=== PATIENT | male | born 1980 | race African-American/Black ===

== ENCOUNTER 2019-04-15 23:32 | Emergency (ER) | payer OTHER, SELFPAY ==
[2019-04-15 23:50] VITALS: BP 155/78; PULSE 75; RESP 18; TEMP 37.2; O2SAT 98
--- NOTE | 2019-04-16 02:12 | ED.DENTAL ---
HPI - Dental/Oral General Chief complaint: Dental/Oral Stated complaint: dental pain Time Seen by Provider: 04/16/19 01:48 Source: patient and RN notes reviewed Mode of arrival: ambulatory Limitations: no limitations History of Present Illness HPI Narrative: A 39 y/o male presents to the ED with constant, severe, lower rt jaw/tooth pain beginning tonight. He states that he knows that he has a cavity and that he needs to see a dentist to have it removed. He denies any fevers, chills, sweats, swelling, N/V/D, or ABD pain. MD Complaint: tooth pain (lower rt) Onset (ago): hour(s) Duration: constant Severity: severe Context: history of dental caries Related Data Allergies Allergy/AdvReac Type Severity Reaction Status Date / Time No Known Allergies Allergy Verified 04/16/19 02:17 Review of Systems Review of Systems: Narrative: CONSTITUTIONAL: Denies fever, chills, or sweats. ENT: Reports rt lower jaw/tooth pain. Denies any facial swelling. GASTROINTESTINAL: Denies abdominal pain, nausea, vomiting, or diarrhea. All systems reviewed & are unremarkable except as noted in HPI and below PMFSH Surgical History Surgical History (Updated 04/16/19 @ 03:24 by Kaiser Mckoy) History of appendectomy No history of previous surgery Social History Social History (Updated 04/16/19 @ 03:25 by Kaiser Mckoy) Smoking status: Never smoker Exam Narrative: Exam Narrative: GENERAL: Well-appearing, well-nourished, and in no acute distress. HEAD: Normocephalic, atraumatic. EYES: PERRLA and EOMI. ENT: Nares clear, no rhinorrhea or epistaxis. Mucous membranes moist. Uvula is midline. Dental caries about molar 30. No purulent drainage, no evidence of abscess. No trismus. NECK: Supple. No cervical or submandibular lymphadenopathy. CHEST: Clear to auscultation. No respiratory distress. HEART: Regular rate and rhythm. No murmur heard. Normal peripheral pulses. ABDOMEN: Soft, nontender, nondistended, normal active bowel sounds. EXTREMITIES: Normal range of motion. No edema. SKIN: Warm, dry, no rash. NEURO: No focal deficits. Alert and oriented x3 Course Vital Signs Vital signs: Vital Signs Temperature 37.2 C 04/15/19 23:50 Pulse Rate 75 04/15/19 23:50 Respiratory Rate 18 04/15/19 23:50 Blood Pressure 155/78 H 04/15/19 23:50 Pulse Oximetry 98 04/15/19 23:50 Temperature 37.2 C 04/15/19 23:50 Pulse Rate 75 04/16/19 02:13 Respiratory Rate 20 04/16/19 02:13 Blood Pressure 138/87 04/16/19 02:13 Pulse Oximetry 97 04/16/19 02:13 MDM - Dental/Oral MDM Narrative Medical decision making narrative: Patient's pain is consistent with dental caries. At the time of assessment there are no signs of systemic illness, no focal signs of space-occupying abscess or lesions, no signs of Willie angina or other concerning retropharyngeal infection. The patient is controlling her secretions well without signs of airway compromise. Patient is thought reasonable for outpatient follow-up with dental evaluation. Patient given oral antibiotics and medication for analgesia. Differential Diagnosis Differential diagnosis: Likely dental caries, toothache, dental abscess and fracture of tooth Discharge Plan Discharge Clinical Impression: Toothache, Dental caries Patient Disposition: Home, Self-Care Condition: Stable Instructions: Antibiotic Form, Toothache (ED) Additional Instructions: It is very important you call dentist for close follow-up. Please take all of your antibiotic as prescribed. You may also take your pain medication as needed when Tylenol and ibuprofen is not working for your pain. Please return to the ER for worsening pain, nausea/vomiting, fever/chills, worsening bleeding, chest pain, shortness of breath, blood in stools or urine, etc. or any other concerns. Take any prescribed medications as directed. Stay well-hydrated If you do not have a drug allergy to tylenol or motrin and can tolerate it then take tyl
[2019-04-16 02:13] VITALS: BP 138/87; PULSE 75; RESP 20; O2SAT 97
== END 2019-04-16 02:50 | disposition home or self-care (01) ==
PROVIDERS: Emergency Provider Emergency Medicine
DX: K02.9 Dental caries, unspecified (principal)
CPT/HCPCS: 99283

== ENCOUNTER 2019-06-12 09:30 | Emergency (ER) | payer OTHER, MEDICAID, SELFPAY ==
--- NOTE | 2019-06-12 09:38 | ED.DENTAL ---
HPI - Dental/Oral General Chief complaint: Dental/Oral Stated complaint: Tooth pain Time Seen by Provider: 06/12/19 09:40 Source: patient and RN notes reviewed Mode of arrival: ambulatory Limitations: no limitations History of Present Illness HPI Narrative: 39-year-old male presents with concern for tooth pain. He reports he has a MD Complaint: tooth pain Location: Tooth # (30) Related Data Home Medications Medication Instructions Recorded Confirmed No Home Medications 06/12/19 06/12/19 Allergies Allergy/AdvReac Type Severity Reaction Status Date / Time No Known Allergies Allergy Verified 06/12/19 09:38 Review of Systems Review of Systems: Narrative: CONSTITUTIONAL: Denies malaise, chills, sweats, or fever. EYES: Denies visual changes, redness, or discharge. ENT: Denies rhinorrhea, congestion, sinus pain, otalgia or sore throat. Reports right lower dental pain CARDIOVASCULAR: Denies chest pain, palpitations RESPIRATORY: Denies dyspnea. GASTROINTESTINAL: Denies abdominal pain, nausea, vomiting SKIN: Denies facial swelling MUSCULOSKELETAL: Denies myalgia. NEUROLOGIC: Denies headache. All systems reviewed & are unremarkable except as noted in HPI and below PMFSH Surgical History Surgical History (Updated 04/16/19 @ 03:24 by Kaiser Mckoy) History of appendectomy No history of previous surgery Social History Social History (Updated 04/16/19 @ 03:25 by Kaiser Mckoy) Smoking status: Never smoker Gender identity (if verbalized by the patient): Male Comments At time of signature, agree with nursing past medical, surgical, social and family history. There is no relevant family history pertinent to the presenting complaint Exam Narrative: Exam Narrative: GENERAL: Well-appearing, well-nourished, and in no acute distress. HEAD: Normocephalic, atraumatic. EYES: PERRLA, conjunctivae clear ENT: Nares clear. Mucous membranes moist. Oropharynx without edema, erythema or lesions. Tooth #30 broken with caries, no periapical abscess noted, no facial swelling noted NECK: Supple. No lymphadenopathy. CHEST: No respiratory distress. Clear to auscultation. No bony deformities, no asymmetry. Speaks in full sentences. HEART: Regular rate and rhythm. No murmur heard. SKIN: Warm, dry, no rash. NEURO: Alert and oriented x3. PSYCH: Normal mood and affect Course Course Emergency Course: Patient is aware of diagnosis, understands and agrees to treatment plan. Anticipatory guidance given. Patient agrees to follow-up as directed and is aware of reasons to seek care at the emergency department. Portions of this record may have been created with voice recognition software Vital Signs Vital signs: Vital Signs Temperature 97.1 F L 06/12/19 09:41 Pulse Rate 65 06/12/19 09:41 Respiratory Rate 16 06/12/19 09:41 Blood Pressure 121/55 L 06/12/19 09:41 Pulse Oximetry 98 06/12/19 09:41 Temperature 97.1 F L 06/12/19 09:41 Pulse Rate 65 06/12/19 09:41 Respiratory Rate 16 06/12/19 09:41 Blood Pressure 121/55 L 06/12/19 09:41 Pulse Oximetry 98 06/12/19 09:41 Reviewed. MDM - Dental/Oral MDM Narrative Medical decision making narrative: Patients pain and complaint coupled with physical findings are consistant with dentalgia. There are no focal signs of space occupying lesions that are compromising to the airway; no dysphagia, odynophagia, dysphonia, or dyspnea. No uvular deviation or soft palate edema. Patient is non-toxic appearing. The floor of the mouth is soft with no signs of Willie's Angina; no induration below mandible, no neck pain. Patient is without trismus or drooling and able to swallow secretions. Patient is felt appropriate for discharge home with dental follow up. Critical Care Time Critical Care Time Critical Care Time: No Discharge Plan Discharge Clinical Impression: Toothache Patient Disposition: Home, Self-Care Condition: Stable Instructions: Antibiotic Form, Too
[2019-06-12 09:41] VITALS: BP 121/55; PULSE 65; RESP 16; TEMP 36.2; O2SAT 98
== END 2019-06-12 10:02 | disposition home or self-care (01) ==
PROVIDERS: Emergency Provider Nurse Practitioner
DX: K08.89 Other specified disorders of teeth and supporting structures (principal)
CPT/HCPCS: 99213; G0463

== ENCOUNTER 2020-01-16 08:05 | Emergency (ER) | payer OTHER, MEDICAID, SELFPAY ==
[2020-01-16 08:20] VITALS: BP 149/63; PULSE 102; RESP 18; TEMP 38.7; O2SAT 95
--- NOTE | 2020-01-16 08:21 | ED.GENADULT ---
HPI - General Adult General Chief complaint: Upper Respiratory Infection Stated complaint: Cough Time Seen by Provider: 01/16/20 08:23 Source: patient and RN notes reviewed Mode of arrival: ambulatory Limitations: no limitations History of Present Illness HPI narrative: 39-year-old -[place] male presents with complaints of upper respiratory infection symptoms and cough for the past 3-4 days. Israel says he here due to increase in coughing episodes over the past 24 hours with yellow productive sputum. Theraflu, NyQuil, and cough drops with some relief. No chest congestion. No rhinorrhea and nasal congestion. No exacerbating factors. No nausea, vomiting, and abdominal pain. Tolerating po intake well. Denies chest pain, dyspnea, coughing up blood, difficulty swallowing, jaw pain, dental pain, facial pain, foreign body sensation, and rash. Remains active. The patient reports he have not been diagnosed with COVID-19. The patient reports he is not waiting for the results of a COVID-19 lab test. The patient reports he do not have chills, weakness, or fatigue. The patient reports he does have shortness of breath. The patient reports he do not have any loss of taste, sore throat, and diarrhea. Denies recent traveling. 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 At this time, patient is not suspected of having COVID-19. Some parts of this dictation were generated by voice recognition software and may contain typographical and/or grammatical inaccuracies. Related Data Allergies Allergy/AdvReac Type Severity Reaction Status Date / Time No Known Allergies Allergy Verified 01/16/20 08:34 Review of Systems Review of Systems: Narrative: CONSTITUTIONAL: Denies fever, chills, sweats. EYES: Denies visual changes, redness, discharge. ENT: Denies rhinorrhea, congestion, sore throat. otalgia. CARDIOVASCULAR: Denies chest pain, palpitations, edema. RESPIRATORY: Denies dyspnea, wheezing. Complains of dry cough with intermittent productive. GASTROINTESTINAL: Denies abdominal pain, nausea, vomiting, diarrhea. SKIN: Denies rash or itching. MUSCULOSKELETAL: Denies acute back pain, joint pain, or myalgia. NEUROLOGIC: Denies numbness or focal weakness. PSYCHIATRIC: Denies anxiety or depression. All systems reviewed & are unremarkable except as noted in HPI and below. [facility] Past Medical History Medical History (Updated 01/16/20 @ 08:59 by BRAYDON Chowdary) Acute upper respiratory infection No significant past medical history Surgical History Surgical History (Updated 01/16/20 @ 08:49 by BRAYDON Chowdary) History of appendectomy Social History Social History Smoking status: Never smoker Gender identity (if verbalized by the patient): Male Comments At time of signature, agree with nurse past medical, surgical, social, and family history. There is no relevant family history pertinent to the presenting complaint. Exam Narrative: Exam Narrative: GENERAL: This is a well-nourished, well-developed patient, in no apparent distress. Speaks in full sentences and ambulates with steady gait without dyspnea. HEAD: normocephalic, atraumatic. EYES: PERRL. Sclera clear/white. Vision is grossly intact. EARS: External ears normal, auditory canals clear and without drainage, TMs normal without perforation. Hearing grossly intact. NOSE: External nose normal with no obvious nasal discharge, nares with moderate redness and enlarged turbinates, right worse, no rhinorrhea. THROAT: Mucous membranes moist, posterior pharynx with PND, mild erythema, no exudate, and normal tonsils. No drainage, no concern for Peritonsillar abscess. No drooling, trismus, or neck swelling. NECK: Neck supple, non-tender without lymphadenopathy, mass
[2020-01-16 08:45] VITALS: TEMP 38.3
[2020-01-16] MEDS: IBUPROFEN 400 MG TABLET 800 MG PO (08:45)
[2020-01-16 08:46] VITALS: TEMP 38.3
[2020-01-16] MEDS: ACETAMINOPHEN 325 MG TABLET 1000 MG PO (08:46)
[2020-01-16 09:16] VITALS: TEMP 37.4
== END 2020-01-16 09:16 | disposition home or self-care (01) ==
PROVIDERS: Emergency Provider Nurse Practitioner Family
DX: J06.9 Acute upper respiratory infection, unspecified (principal); Z20.828 Contact with and (suspected) exposure to other viral communicable diseases
CPT/HCPCS: 87081; 87804; 87880; 99213; A9270; G0463

== ENCOUNTER 2020-10-15 00:23 | Emergency (ER) | payer OTHER, MEDICAID, SELFPAY ==
[2020-10-15 00:27] VITALS: BP 160/83; PULSE 67; RESP 16; TEMP 36.3; O2SAT 97
--- NOTE | 2020-10-15 03:09 | ED.DENTAL ---
HPI - Dental/Oral General Chief complaint: Dental/Oral Stated complaint: facial swelling following dental extraction Time Seen by Provider: 10/15/20 02:18 Source: patient and RN notes reviewed Mode of arrival: ambulatory Limitations: no limitations History of Present Illness HPI Narrative: This is a 40 year old male who presents for evaluation of left cheek pain and swelling. He states he had 3 teeth pulled last week. He also reports there was an incision made to left upper gum last week. He was discharged home on ibuprofen and pain medication but he denies taking antibiotics. He came to ER today because he developed left upper gum, facial throbbing pain. He states it feels swollen. He took ibuprofen earlier for his pain and he had improvement. He denies nausea, vomiting, fever, difficulty breathing. He also denies drainage from his gum or teeth. Related Data Allergies Allergy/AdvReac Type Severity Reaction Status Date / Time No Known Allergies Allergy Verified 10/15/20 02:59 Review of Systems Review of Systems: All systems reviewed & are unremarkable except as noted in HPI and below PMFSH Past Medical History Medical History Acute upper respiratory infection No significant past medical history Surgical History Surgical History (Updated 01/16/20 @ 08:49 by BRAYDON Chowdary) History of appendectomy Social History Social History Smoking status: Never smoker Gender identity (if verbalized by the patient): Male Exam Const: General: no acute distress and alert Nutritional Appearance: obese Orientation/consciousness: patient oriented x3 HENMT: Head: normocephalic and atraumatic Face and sinus: face symmetric Mouth: Yes other (left cheek tenderness, no swelling) Teeth and gingiva: other (socket at 13 brown but no drainage, no gum swelling, ) Throat: posterior oropharynx normal, tonsils normal and uvula midline Eyes: EOM: EOMs intact bilaterally Resp: Effort & Inspection: normal respiratory effort Skin: General skin exam: normal color Rashes: no rashes Neuro: General: patient oriented x3, moves all extremities and CN's II-XI intact bilaterally Course Reevaluation(s) Reevaluation #1: I have discussed with patient plan to discharge with antibiotics. HE will follow up with his dentist. Date: 10/15/20 Time: 03:13 Vital Signs Vital signs: Vital Signs Temperature 97.3 F L 10/15/20 00:27 Pulse Rate 67 10/15/20 00:27 Respiratory Rate 16 10/15/20 00:27 Blood Pressure 160/83 H 10/15/20 00:27 Pulse Oximetry 97 10/15/20 00:27 Temperature 97.3 F L 10/15/20 00:27 Pulse Rate 67 10/15/20 00:27 Respiratory Rate 16 10/15/20 00:27 Blood Pressure 160/83 H 10/15/20 00:27 Pulse Oximetry 97 10/15/20 00:27 Discharge Plan Discharge Clinical Impression: Dental abscess Patient Disposition: Home, Self-Care Condition: Stable Instructions: Antibiotic Form, Dental Abscess (ED), Toothache (ED) Additional Instructions: Please call your dentist tomorrow to discuss your issue to see if they would to see you again. Take antibiotics as prescribed. Prescriptions: New amoxicillin-pot clavulanate [Augmentin] 875-125 mg tablet 1 tablet PO Q12H Qty: 20 RF: 0 ibuprofen 600 mg tablet 600 mg PO Q6H PRN (Reason: pain) Qty: 14 RF: 0 No Action benzonatate 100 mg capsule 100 mg PO TID Qty: 60 RF: 0 fluticasone propionate [Allergy Relief (fluticasone)] 50 mcg/actuation spray,suspension 1 spray NASAL BID Qty: 16 RF: 0 cetirizine [Zyrtec] 10 mg tablet 10 mg PO DAILY 60 Days Qty: 60 RF: 0 Follow-up/Referrals: PHYSIC[facility] [Primary Care Provider] - Colin Aguirre MD [Physician] - Stand Alone Forms: Work/School Release IP
[2020-10-15] MEDS: IBUPROFEN 600 MG TABLET PO (03:35)
[2020-10-15] MEDS: AMOXICILLIN/CLAVULANATE K 875-125 MG TAB 1 TABLET PO (03:35)
== END 2020-10-15 03:33 | disposition home or self-care (01) ==
PROVIDERS: Emergency Provider General Practice
DX: K04.7 Periapical abscess without sinus (principal)
CPT/HCPCS: 99283; A9270

== ENCOUNTER 2022-08-19 23:39 | Emergency (ER) | payer OTHER, MEDICAID, SELFPAY ==
[2022-08-19 23:47] VITALS: BP 146/75; PULSE 88; RESP 16; TEMP 36.4; O2SAT 97
[2022-08-20 00:28] LABS: Appearance Urine Clear (Clear); Bacteria Urine None Seen /hpf; Bilirubin Urine Negative (Negative); Blood Urine Negative (Negative); Color Urine Yellow (Yellow); Glucose Urine UA 2+ mg/dL (Negative); Ketones Urine Trace mg/dL (Negative); Leukocyte Esterase Ur Negative LEU/UL (Negative); Need Manual Microscopic Reviewed; Nitrate Urine Negative (Negative); Non Pathogenic Casts 0-2; Protein Urine 2+ mg/dL (Negative); RBC Urine 0-2 /hpf (0-2); Specific Grav Ur 1.031 (1.001-1.035); Squamous Epithelial Cell Urine None seen /hpf (Few)
[2022-08-20 00:31] LABS: Add Urine Microscopic? YES
[2022-08-20 01:54] VITALS: PULSE 69; RESP 15; TEMP 36.6; O2SAT 98
--- NOTE | 2022-08-20 02:01 | ED.GENADULT ---
HPI - General Adult General Chief complaint: Urogenital-Male Stated complaint: cut on his penis Time Seen by Provider: 08/20/22 01:55 History of Present Illness HPI narrative: Patient 42-year-old gentleman who presents the emergency department with chief complaint of irritation on his penis. The patient reports that on the base of his glans he has noticed there is some erythema and tenderness patient states that he does sweat a lot both at work and in physical activity. The patient reports no trauma reports no new sexual partners reports that it has been sometime since he had intercourse. The patient reports no trauma Related Data Allergies Allergy/AdvReac Type Severity Reaction Status Date / Time No Known Allergies Allergy Verified 10/15/20 02:59 Review of Systems Review of Systems: A 10 system review of systems was completed on the patient and is negative except for what is stated in the HPI. Nursing and ancillary documentation was reviewed. [facility] Past Medical History Medical History Acute upper respiratory infection No significant past medical history Surgical History Surgical History History of appendectomy Social History Social History Smoking status: Never smoker Gender identity (if verbalized by the patient): Male Exam Narrative: GENERAL: Well-appearing, well-nourished, and in no acute distress. HEAD: Normocephalic, atraumatic. EYES: PERRLA and EOMI. ENT: Nares clear, no rhinorrhea or epistaxis. Mucous membranes moist. NECK: Supple. CHEST: Clear to auscultation. No respiratory distress. HEART: Regular rate and rhythm. No murmur heard. Normal peripheral pulses. ABDOMEN: Soft, nontender, nondistended, normal active bowel sounds. : Penis is atraumatic, there is a small ulceration present at the base of the glans there is no vesicular lesions there is no purulent drainage EXTREMITIES: Normal range of motion. No edema. SKIN: Warm, dry, no rash. NEURO: No focal deficits. Alert and oriented x3. PSYCH: Normal mood and affect. Course Vital Signs Vital signs: Vital Signs Temperature 36.4 C L 08/19/22 23:47 Pulse Rate 88 08/19/22 23:47 Respiratory Rate 16 08/19/22 23:47 Blood Pressure 146/75 H 08/19/22 23:47 Pulse Oximetry 97 08/19/22 23:47 Oxygen Delivery Room Air 08/19/22 23:47 Temperature 36.6 C 08/20/22 01:54 Pulse Rate 69 08/20/22 01:54 Respiratory Rate 15 08/20/22 01:54 Blood Pressure 146/75 H 08/19/22 23:47 Pulse Oximetry 98 08/20/22 01:54 Oxygen Delivery Room Air 08/19/22 23:47 Medical Decision Making MDM Narrative Medical decision making narrative: Differential diagnosis includes bowel otitis, UTI, STI, Urinalysis showed 11-20 white blood cells in the urine Patient's fingerstick blood sugar was 220 The patient will be started on a topical antifungal cream and will also be started on an antibiotic for the urinary tract infection Vital Signs Vital Signs: Vital Signs Temperature 36.4 C L 08/19/22 23:47 Pulse Rate 88 08/19/22 23:47 Respiratory Rate 16 08/19/22 23:47 Blood Pressure 146/75 H 08/19/22 23:47 Pulse Oximetry 97 08/19/22 23:47 Oxygen Delivery Room Air 08/19/22 23:47 Temperature 36.6 C 08/20/22 01:54 Pulse Rate 69 08/20/22 01:54 Respiratory Rate 15 08/20/22 01:54 Blood Pressure 146/75 H 08/19/22 23:47 Pulse Oximetry 98 08/20/22 01:54 Oxygen Delivery Room Air 08/19/22 23:47 Lab Data Labs: Lab Results 08/19/22 08/20/22 Range/Units 23:52 02:02 POC Capillary Glucose 220 H (65-105) mg/dl Urine Color Yellow (Yellow) Urine Appearance Clear (Clear) Urine pH 6.0 (5.0-9.0) Ur Specific [place] 1.031 (1.001-1.035) Urine Protein 2+ H (Negative) mg/dL Uri
[2022-08-20 02:05] LABS: Glucose Point of Care 220 mg/dl (65-105)
[2022-08-20 02:47] VITALS: BP 140/77; PULSE 72; RESP 15; TEMP 36.6; O2SAT 99
== END 2022-08-20 02:48 | disposition home or self-care (01) ==
LOC: ANHED 08-20 02:38
PROVIDERS: Emergency Provider Emergency Medicine
DX: N48.1 Balanitis (principal); N39.0 Urinary tract infection, site not specified; R73.09 Other abnormal glucose
CPT/HCPCS: 81001; 82948; 87086; 99283

== ENCOUNTER 2023-04-23 10:39 | Emergency (ER) | payer BC, OTHER, MEDICAID, SELFPAY ==
--- NOTE | 2023-04-23 10:46 | ED.MALEGU ---
HPI - Male Genitourinary General Chief complaint: Urogenital-Male Stated complaint: Male Problems Time Seen by Provider: 04/23/23 10:55 Source: patient Mode of arrival: ambulatory Limitations: no limitations History of Present Illness HPI Narrative: Israel is a 43-year-old female patient presenting to the clinic today with complaints of a sore to the penis. He reports he 1st noticed this this morning. Denies any concern for any sexually transmitted infections. Denies any urinary symptoms. States that he was cleaning himself this morning and noticed a open tender area to the bottom base of his vas deferens. Related Data Allergies Allergy/AdvReac Type Severity Reaction Status Date / Time No Known Allergies Allergy Verified 04/23/23 10:54 Review of Systems Review of Systems: Pertinent positives per HPI. Patient denies any fever, chills, rash, headache, visual changes, dizziness, cough, shortness of breath, chest pain, palpitations, nausea, vomiting, diarrhea, constipation, abdominal pain, or any urinary issues. PMFSH Past Medical History Medical History Acute upper respiratory infection No significant past medical history Surgical History Surgical History History of appendectomy Social History Social History Smoking status: Never smoker Gender identity (if verbalized by the patient): Male Comments At the time of my signature, I reviewed and agree with the nursing past medical, surgical, social, and family history. There is no relevant family history pertinent to the patient complaint. Exam Narrative: General: Well-developed, well nourished, in no apparent distress Head: Normocephalic, atraumatic. Cardio: Regular rate and rhythm, s1 and s2 normal, no murmur appreciated. Resp: Clear to auscultation bilaterally, no rhonchi, rales, wheezing or rubs. Integumentary: [place], warm, and dry, small open tender not indurated wound to the bottom base of the vas deferens, no drainage noted Course Course Emergency Course: Portions of this record may have been created with voice recognition software. Level of Care: Express Care Visit Vital Signs Vital signs: Vital signs reviewed [facility] - Male Genitourinary MDM Narrative Medical decision making narrative: At the time of visit patient is resting comfortably on the exam table. Patient appears to be nontoxic. Plan: I suspect patient has an open sore to the base of the vas deferens. No obvious sign of herpetic lesions. He denies any known injury. I will send in prescription for mupirocin cream. Supportive measures were discussed with the patient and they voiced understanding discharge instructions and agrees to treatment plan. Return precautions reviewed Differential Diagnosis Differential diagnosis: Likely urinary tract infection, urethritis, epididymitis, prostatitis and other (Sore to the penis) Discharge Plan Discharge Clinical Impression: Open wound of penis without complication Qualifiers: Encounter type: initial encounter Qualified Code(s): S31.20XA - Unspecified open wound of penis, initial encounter Patient Disposition: Home, Self-Care Condition: Stable Instructions: Antibiotic Form, Acute Wounds (ED) Additional Instructions: Keep wound clean and dry Apply mupirocin cream to the affected area twice daily x7 days Watch for signs and symptoms of infection- redness, streaking, swelling, purulent discharge, or increase in pain. Follow up with your PCP in 1 week if symptoms persist or sooner if they worsen Prescriptions: New mupirocin 2 % ointment 1 applic topical BID 7 Days Qty: 22 0RF Follow-up/Referrals: Paige,Michael Lewis MD [Primary Care Provider] - Time of Disposition: 10:53 Quality [facility] Nursing Documentation ED [facility] nursing d
[2023-04-23 10:48] VITALS: BP 153/77; PULSE 64; RESP 18; TEMP 36.8; O2SAT 97
== END 2023-04-23 11:02 | disposition home or self-care (01) ==
PROVIDERS: Emergency Provider Nurse Practitioner Family; PCP Internal Medicine
DX: S31.20XA Unspecified open wound of penis, initial encounter (principal); X58.XXXA Exposure to other specified factors, initial encounter
CPT/HCPCS: 99213; G0463

== ENCOUNTER 2024-10-18 10:22 | Emergency (ER) | payer BC, OTHER, MEDICAID, SELFPAY ==
[2024-10-18 10:29] VITALS: BP 144/76; PULSE 84; RESP 16; TEMP 36; O2SAT 98
--- NOTE | 2024-10-18 10:50 | ED.MALEGU ---
HPI - Male Genitourinary General Chief complaint: Urogenital-Male Stated complaint: private area irritation Time Seen by Provider: 10/18/24 10:49 Source: patient and RN notes reviewed Mode of arrival: ambulatory Limitations: no limitations History of Present Illness HPI Narrative: 44-year-old male presents with concern for irritation below the head of his penis. He reports he noticed it yesterday. He denies any irritation, pain, itchiness. He denies any new personal care products. Denies any concern for STD. Reports he is very active and gets sweaty. MD Complaint: other (irritation) Related Data Allergies Allergy/AdvReac Type Severity Reaction Status Date / Time No Known Allergies Allergy Verified 10/18/24 10:30 Review of Systems Review of Systems: CONSTITUTIONAL: Denies malaise, chills, sweats, or fever. CARDIOVASCULAR: Denies chest pain, palpitations, or edema. RESPIRATORY: Denies cough or dyspnea. GASTROINTESTINAL: Denies abdominal pain, nausea, vomiting, diarrhea GENITOURINARY: Denies discharge, dysuria, frequency, urgency, suprapubic pressure. Denies flank pain or hematuria. SKIN: Denies rash or itching. Reports excoriated skin proximal to the head of the penis MUSCULOSKELETAL: Denies back pain or myalgia. All systems reviewed & are unremarkable except as noted in HPI and below PMFSH Past Medical History Medical History Acute upper respiratory infection No significant past medical history Surgical History Surgical History History of appendectomy Social History Social History Smoking status: Never smoker Gender identity (if verbalized by the patient): Male Comments At time of signature, agree with nursing past medical, surgical, social and family history. There is no relevant family history pertinent to the presenting complaint Exam Narrative: GENERAL: Well-appearing, well-nourished, and in no acute distress. HEAD: Normocephalic. EYES: PERRLA, conjunctivae clear. NECK: Supple. No lymphadenopathy CHEST: Clear to auscultation. No respiratory distress. HEART: Regular rate and rhythm. SKIN: Warm, dry, no lesions noted. <1 cm long and 0.25 cm wide slightly excoriated area of skin proximal to the head of the penis, otherwise unremarkable. : No penile discharge noted NEURO: Alert and oriented x3. PSYCH: Normal mood and affect : Penis: Yes circumcised Course Course Emergency Course: Patient is aware of diagnosis, understands and agrees to treatment plan. Anticipatory guidance given. Patient agrees to follow-up as directed and is aware of reasons to seek care at the emergency department. Portions of this record may have been created with voice recognition software Level of Care: [facility] Visit Vital Signs Vital signs: Vital Signs Temperature 96.8 F L 10/18/24 10:29 Pulse Rate 84 10/18/24 10:29 Respiratory Rate 16 10/18/24 10:29 Blood Pressure 144/76 H 10/18/24 10:29 Pulse Oximetry 98 10/18/24 10:29 Oxygen Delivery Room Air 10/18/24 10:29 Temperature 96.8 F L 10/18/24 10:29 Pulse Rate 84 10/18/24 10:29 Respiratory Rate 16 10/18/24 10:29 Blood Pressure 144/76 H 10/18/24 10:29 Pulse Oximetry 98 10/18/24 10:29 Oxygen Delivery Room Air 10/18/24 10:29 Reviewed. MDM - Male Genitourinary MDM Narrative Medical decision making narrative: I evaluated this patient in the [facility]. History is obtained from patient who is an independent historian and physical exam was performed.? Available medical records were reviewed. ? Exam findings and relevant testing show no acute concerns or changes; patient is non-toxic appearing and is in no distress. ? Differential diagnosis and treatment plan were discussed with the patient. Patient agrees with discussion and after shared medical decision making agrees with plan of care. All questions were answered to the patient's satisfaction. Patient is appropriate for outpatient treatment and follow-up. Critical Care Time Critical Care Time Critical Care Time: No Discharge Plan Discharge Clinical Impression: Dermatitis Patient Disposition: Home Condition: Stable Instructions: Dermatitis (ED) Additional Instructions: Apply [id number] hydrocortisone cream twice a day. You can apply Vaseline or Aquaphor in between those doses as a barrier to the skin. Dry well after showering. If you have any other concerns please follow-up your primary care doctor. If you have any urgent concerns please go to the emergency room. Patient Language: Maltese Follow-up/Referrals: Paige,Michael Lewis MD [Primary Care Provider] - Time of Disposition: 10:59
== END 2024-10-18 11:02 | disposition home or self-care (01) ==
PROVIDERS: Emergency Provider Nurse Practitioner; PCP Internal Medicine
DX: L30.9 Dermatitis, unspecified (principal)
CPT/HCPCS: 99211; G0463